=== PATIENT | female | born 1995 | race Asian ===

== ENCOUNTER 2016-10-25 22:11 | Emergency (ER) | payer SELFPAY ==
[~2016-10-25] VITALS: Ht 157.5 cm; Wt 53.1 kg
[2016-10-25 22:35] VITALS: BP 92/41
== END 2016-10-26 01:35 | disposition left against medical advice (07) ==
LOC: ER 22:14
DX: R10.13 Epigastric pain (principal); Z53.21 Procedure and treatment not carried out due to patient leaving prior to being seen by health care provider

== ENCOUNTER 2017-08-24 20:45 | Emergency (ER) | payer OTHER ==
[~2017-08-24] VITALS: Ht 154.9 cm; Wt 49.9 kg
[2017-08-24] MEDS ORDERED: SODIUM CHLORIDE 0.9% 500 ML IVB ONE (21:08)
[2017-08-24 21:19] LABS: Basophils # (auto) 0 uL; Basophils % (auto) 0.6 % (0.0-2.0); Eosinophils # (auto) 0.3 uL; Eosinophils % (auto) 4.6 % (0.0-7.0); Hematocrit 37.8 % (36.0-46.0); Hemoglobin 12.6 g/dL (12.2-16.2); Lymphocytes # (auto) 2.2 uL; Lymphocytes % (auto) 36.9 % (10.0-50.0); Mean Corpuscular Hemoglobin 31.3 pg (28.0-32.0); Mean Corpuscular Hgb Conc. 33.3 g/dL (32.0-36.0); Mean Corpuscular Volume 93.8 fL (80.0-100.0); Mean Platelet Volume 9.3 fL (6.9-10.8); Monocytes # (auto) 0.4 uL; Monocytes % (auto) 6.6 % (0.0-12.0); Neutrophils # (auto) 3.1 uL; Neutrophils % (auto) 51.3 % (37.0-80.0); Nucleated Red Blood Cells % 0.1 %; Platelet Count (auto) 146 10^3/uL (140-450); Red Cell Distribution Width 12.8 % (11.8-14.3)
[2017-08-24 21:34] LABS: INR 0.95 (0.9-1.15); Partial Thromboplastin Time 23.2 sec (22.64-33.71); Prothrombin Time 10.4 sec (9.37-12.3)
[2017-08-24 21:37] LABS: Albumin 3.4 g/dL (3.4-5.0); BUN/Creatinine Ratio 24.1; Calcium 7.7 mg/dL (8.5-10.1); Magnesium 2.4 mg/dL (1.6-2.6)
[2017-08-24 21:40] LABS: Bilirubin, Total 0.4 mg/dL (0.2-1.0); Total Protein 6.9 g/dL (6.4-8.2)
[2017-08-24 23:15] LABS: Urine RBC None Seen /hpf (0 - 4)
[2017-08-24 23:24] LABS: Urine Bilirubin Negative (Negative); Urine Blood 2+ /uL (Negative); Urine Color Yellow (Yellow); Urine Glucose Normal (Normal); Urine Hyaline Cast FEW /lpf (0 - 2); Urine Ketone Negative (Negative); Urine Mucus FEW (None Seen); Urine Nitrite Negative (Negative); Urine Squamous Epithelial Cell FEW /hpf (<5); Urine Urobilinogen Normal (Negative); Urine pH 6.5 (5.0-8.0)
[2017-08-24] MEDS ORDERED: CALCIUM CHLOR(10%) 100MG/ML 10ML SYRINGE IV ONE (23:39)
[2017-08-24] MEDS ORDERED: CALCIUM CHL 100MG/ML 1,000 MG in D5W 5% 100 ML IV ONE (23:45)
[2017-08-25 00:03] VITALS: BP 95/65
== END 2017-08-25 00:12 | disposition home or self-care (01) ==
LOC: EDBD 20:45 → EDUNIT# 20:45 → ER 20:54
DX: R55 Syncope and collapse (principal); R51 Headache; R53.1 Weakness
CPT/HCPCS: 36415; 70450; 71010; 80053; 80307; 81001; 81025; 82962; 83735; 84484; 85025; 85610; 85730; 93005; 94761; 96361; 96365; 99285; J7030; J7060